=== PATIENT | female | born 1950 | race Caucasian/White ===

== ENCOUNTER 2016-12-03 09:10 | Outpatient (CLI) | payer MEDICARE, OTHER ==
[~2016-12-03 09:10] MED LIST: BREO ELLIPTA1 POW IH; DILTIAZEM CD120 MG PO; FLUTICASONE 50M16 GM; IMODIUM 2MG. CAP2 MG PO; LORAZEPAM0.5 MG/TAB PO; LOSARTAN POTAS100 MG PO; METFORMIN500 MG PO; MONTELUKAST SOD10 MG PO; OMEGA-3 KRILL O1 SGL PO; SALMETEROL-F28 PUFF1 IN; TRAZODONE 50MG50 MG PO; VENTOLIN H0.09 MG/AC IH; VITAMIN D35000 IU PO; ZOFRAN4 MG PO; [UNRECOGNIZED DRUG - OTHER] PO
[2016-12-03] MEDS ORDERED: REFRESH OPTIVE1 EACH OP (10:22)
[2016-12-03] MEDS ORDERED: FLAX OIL1000 M1 PO (10:22)
[2016-12-03] MEDS ORDERED: CEPHALEXIN500 MG PO (10:25)
[2016-12-03 10:42] VITALS: BP 156/86
[2016-12-03 10:50] VITALS: BP 141/88
[2017-01-31] MEDS ORDERED: CETIRIZINE HCL10 MG PO (11:26)
[2017-02-27] MEDS ORDERED: CEFDINIR300 MG PO (10:22)
== END 2016-12-03 11:00 | disposition home or self-care (01) ==
LOC: COP 09:10
DX: J45.40 Moderate persistent asthma, uncomplicated (principal)
CPT/HCPCS: J2357

== ENCOUNTER 2016-12-27 12:35 | Outpatient (CLI) | payer MEDICARE, OTHER ==
[~2016-12-27 12:35] MED LIST changes: +CEPHALEXIN500 MG PO; +FLAX OIL1000 M1 PO; +REFRESH OPTIVE1 EACH OP
[2016-12-27 12:50] VITALS: BP 136/62
[2017-01-31] MEDS ORDERED: CETIRIZINE HCL10 MG PO (11:26)
[2017-02-27] MEDS ORDERED: CEFDINIR300 MG PO (10:22)
== END 2016-12-27 13:15 | disposition home or self-care (01) ==
LOC: COP 12:35
DX: J45.40 Moderate persistent asthma, uncomplicated (principal)
CPT/HCPCS: J2357

== ENCOUNTER 2017-02-13 10:30 | Outpatient (CLI) | payer MEDICARE, OTHER ==
[~2017-02-13 10:30] MED LIST changes: +CETIRIZINE HCL10 MG PO
[2017-02-13 10:55] VITALS: BP 132/70
[2017-02-27] MEDS ORDERED: CEFDINIR300 MG PO (10:22)
== END 2017-02-13 11:15 | disposition home or self-care (01) ==
LOC: COP 10:30
DX: J45.40 Moderate persistent asthma, uncomplicated (principal)
CPT/HCPCS: J2357

== ENCOUNTER 2017-08-27 11:45 | Outpatient (CLI) | payer MEDICARE, OTHER ==
[~2017-08-27 11:45] MED LIST changes: +CEFDINIR300 MG PO; +CYMBALTA30 MG PO; +ELIQUIS5 MG PO; +METFORMIN 500M500 M1 PO; +WELLBUTRIN XL150 MG PO; +WELLBUTRIN XL300 MG PO
[2017-08-27 12:25] VITALS: BP 120/70
== END 2017-08-27 12:45 | disposition home or self-care (01) ==
LOC: COP 11:45
DX: J45.40 Moderate persistent asthma, uncomplicated (principal)
CPT/HCPCS: J2357

== ENCOUNTER 2017-09-10 10:40 | Outpatient (CLI) | payer MEDICARE, OTHER ==
[~2017-09-10 10:40] MED LIST changes: -CYMBALTA30 MG PO; +CYMBALTA60 M1 PO
[2017-09-10 11:05] VITALS: BP 115/69
== END 2017-09-10 11:25 | disposition home or self-care (01) ==
LOC: COP 10:40
DX: J45.40 Moderate persistent asthma, uncomplicated (principal)
CPT/HCPCS: J2357

== ENCOUNTER 2017-09-15 13:41 | Inpatient (IN) | payer MEDICARE, OTHER ==
[~2017-09-15] VITALS: Ht 154.9 cm; Wt 65.5 kg
[2017-09-15 13:44] VITALS: BP 166/66
--- OUTSIDE RECORDS SUMMARY | 2017-09-15 13:55 | External Medical Summary Rpt | CCD ---
Author Author , LOPEZ MARROQUIN Address Unknown Phone [email or web address] Care Team Providers Care Teen Counselor Name Role Phone Manuel Marie MD, Unavailable Unavailable Maunel Marie MD Purpose Continuity of Care Document - 08-09-2013 through 2016 Problems Code Diagnosis DOS Provider Status [id number] Asthma [facility] 401.9 Essential [place] hypertensio [facility] 427.31 [facility] [place] [facility] [id number] Diabetes [place] mellitus [facility] 2 [facility] Allergies, Adverse Reactions, Alerts Type Allergy to substance Drug Allergy Adverse Reaction to Substance Substance Reaction Severity IV CONTRAST I-HIVES Severe Penicillin Unknown Unknown Sulfonamide Related Unknown Unknown Tetracycline Unknown Unknown Penicillin G Unknown Unknown Levofloxacin Unknown Unknown Medications Na ND Rx Da Fi Fi Am Da Di Ph RX Ph St me C No te ll ll ou ys ag ar # ys at rm s nt no ma ic us Or Da si cy ia de te s n re d Di 62 11 1 No lt 58 -2 ia 40 3- Lo ze 97 20 ng m 40 13 er ER 1 Ac 12 ti 0M ve G Ca ps ul e SO 00 11 2 No DI 40 -2 UM 97 2- Lo 98 20 ng CH 30 13 er LO 9 RI Ac DE ti ve 0. 9% SO JULIA TI ON TY 50 11 2 No LE 58 -2 NO 00 2- Lo L 45 20 ng EX 10 13 er -S 3 TR Ac ti 50 [address] ET LO 51 11 2 No PE 07 -2 RA 90 2- Lo WY 69 20 ng DE 02 13 er 2 0 Ac MG ti ve CA PS UL E ON 00 11 2 No DA 64 -2 NS 16 2- Lo ET 08 20 ng RO 02 13 er N 5 HC Ac L ti 4 ve MG /2 ML AL Lo 63 11 2 No ra 73 -2 ze 90 2- Lo pa 15 20 ng m 41 13 er 0. 0 5M Ac G ti Ta ve bl et PA 11 2 No TI -2 EN 2- Lo T' 20 ng S 13 er OW N Ac HO ti ME ve ME DS FA 51 11 2 No MO 07 -2 TI 90 2- Lo DI 96 20 ng NE 62 13 er 0 20 Ac ti MG ve TA BL ET FS 11 2 No -2 BL 2- Lo OO 20 ng D 13 er M[place]IS GA Ac R ti ve SO 00 09 0 No DI 40 -1 UM 97 0- Lo 98 20 ng CH 30 13 er LO 9 RI Ac DE ti ve 0. 9% SO JULIA TI ON AV 00 09 0 No AP 08 -1 RO 72 0- Lo 77 20 ng 15 23 13 er 0 1 MG Ac ti TA ve BL ET PA 09 0 No TI -1 EN 0- Lo T' 20 ng S 13 er OW N Ac HO ti ME ve ME DS Di 62 09 0 No lt 58 -1 ia 40 0- Lo ze 97 20 ng m 40 13 er ER 1 Ac 12 ti 0M ve G Ca ps ul e DI 00 09 0 No LT 40 -0 IA 94 9- Lo ZE 35 20 ng M 00 13 er HC 3 L Ac 10 ti 0 ve MG AL SO 00 09 0 No DI 40 -0 UM 97 9- Lo 10 20 ng CH 16 13 er LO 7 RI Ac DE ti ve 0. 9% SO LN Sa 63 09 0 No li 80 -0 ne 70 9- Lo 10 20 ng Fl 07 13 er us 5 h Ac 10 ti ML ve Sy ri ng e ON 00 09 0 No DA 64 -0 NS 16 9- Lo ET 08 20 ng RO 02 13 er N 5 HC Ac L ti 4 ve MG /2 ML AL Di 55 09 0 No lt 39 -0 ia 00 9- Lo ze 56 20 ng m 60 13 er 25 5 MG Ac /5 ti ML ve Vi al LO 00 09 0 No VE 07 -0 NO 50 9- Lo X 62 20 ng 80 28 13 er 1 MG Ac /0 ti .8 ve ML SY RI NG E FS 09 0 No -0 BL 9- Lo OO 20 ng D 13 er M[place]RIS GA Ac R ti ve Ae 08 09 0 No ro 37 -0 ch 30 9- Lo am 76 20 ng be 50 13 er r/ 0 Op Ac ti ti pritchard ve le r Lo 63 09 0 No ra 73 -0 ze 90 9- Lo pa 15 20 ng m 41 13 er 0. 0 5M Ac G ti Ta ve bl et AV 00 09 0 No AP 08 -0 RO 72 9- Lo 77 20 ng 15 23 13 er 0 1 MG Ac ti TA ve BL ET ME 51 09 0 No TO 07 -0 OH 90 9- Lo OL 80 20 ng OL 12 13 er 0 TA Ac RT ti RA ve TE 50 MG TA B CO 00 09 0 No UM 05 -0 AD 60 9- Lo IN 17 20 ng 5 27 13 er 0 MG Ac ti TA ve BL ET VE 00 09 0 No NT 17 -0 OL 30 9- Lo IN 68 20 ng 22 13 er HF 4 A Ac 90 ti ve MC G IN PRITCHARD LE R Lo 63 09 1 No ra 73 -0 ze 90 9- Lo pa 15 20 ng m 41 13 er 0. 0 5M Ac G ti Ta ve bl et AD 00 09 1 No VA 17 -0 IR 30 9- Lo 69 20 ng 50 70 13 er 0- 4 50 Ac ti DI ve SK US Vital Signs 10-24-2013 12:20 Name Value Interpretat Reference Comment ion Range Body 98.2 [degF] Temperature BP 59 mm[Hg] Diastolic BP Systolic 118 mm[Hg] Heart 63 /min Rate/Pulse Respiratory 20 /min Rate 10-24-2013 12:00 Name Value Interpretat Reference Comment ion Range O2% 98 % 10-22-2013 20:00 Name Value Interpretat Reference Comment ion Range O2% 93 % 10-22-2013 18:03 Name Value Interpretat Reference Comment ion Range Body 98.8 [degF] Temperature BP 69 mm[Hg] Diastolic BP Systolic 152 mm[Hg] Heart 116 /min Rate/Pulse Height 154.94 cm Respiratory 24 /min Rate Weight 158 [lb_av] Measured Weight 71.895 kg Measured 08-10-2013 13:15 Name Value Interpretat Reference Comment ion Range Body 98.2 [degF] Temperature BP 63 mm[Hg] Diastolic BP Systolic 118 mm[Hg] Heart 65 /min Rate/Pulse Respiratory 18 /min Rate 08-10-2013 08:00 Name Value Interpretat Reference Comment ion Range O2% 92 % 08-09-2013 07:13 Name Value Interpretat Reference Comment ion Range Height 154.94 cm Weight 72.179 kg Measured 08-09-2013 03:19 Name Value Interpretat Reference Comment ion Range Body 98.1 [degF] Temperature BP 120 mm[Hg] Diastolic BP Systolic 178 mm[Hg] Heart 95 /min Rate/Pulse O2% 99 % Respiratory 20 /min Rate Weight 0 [oz_av] Measured Results Labs Lab Lab Date Result Refere Interp Status Commen Order Detail nces retati t Range on BASIC METABOLIC PANEL (10-24-2013 06:20) Glucose 128 74-106 complet 013 mg/dL ed Bld-mCn 06:20 c BUN 6 mg/dL 7-18 complet Bld-mCn 013 ed c 06:20 Creat 1.0 0.6-1.0 complet SerPl-m 013 mg/dL ed Cnc 06:20 Creat 64 50-200 complet Cl 013 ML/MIN ed predict 06:20 ed SerPl C-G-vRa te GFR/BSA 56 59- complet .pred 013 ML/MIN ed SerPl 06:20 Schwart z-vRate Sodium 145 136-145 complet SerPl-s 013 mmoL/L ed Cnc 06:20 Potassi 3.8 3.5-5.1 complet um 013 mmoL/L ed SerPl-s 06:20 Cnc Chlorid 109 98-107 complet e 013 mmoL/L ed SerPl-s 06:20 Cnc CO2 28 21.0-32 complet SerPl-s 013 mmoL/L .0 ed Cnc 06:20 Calcium 7.7 8.5-10. complet 013 mg/dL 1 ed SerPl-m 06:20 Cnc CBC with AUTO DIFF (10-24-2013 06:20) WBC # 10-24-2 5.8 4.8-10. complet Bld 013 K/MM3 8 ed Auto 06:20 RBC # 10-24-2 3.82 4.2-5.4 complet Bld 013 M/mm3 ed Auto 06:20 Hgb 11.9 12.2-16 complet Bld-mCn 013 g/dL .2 ed c 06:20 Hct Fr 34.8 % 37.0-47 complet Bld 013 .0 ed 06:20 MCV RBC 11-24-2 91.3 fl 82.2-97 complet 013 .8 ed 06:20 MCH RBC 11-24-2 31.3 pg 27-31.2 complet Qn 013 ed Auto 06:20 MEAN 11-24-2 34.3 31.8-35 complet CORPUSC 013 g/dl .4 ed ULAR 06:20 HGB CONC RDW RBC 11-24-2 14.5 % 11.5-17 complet Auto 013 .5 ed 06:20 Platele 11-24-2 209 142-424 complet t Bld 013 K/mm3 ed Ql 06:20 Manual MEAN 11-24-2 7.4 fl 7.4-10. complet PLATELE 013 4 ed T 06:20 VOLUME Granulo 11-24-2 54.9 % 37.0-80 complet cytes 013 .0 ed Fr Bld 06:20 Auto LYMPH % 11-24-2 31.9 % 10-50.0 complet 013 ed 06:20 Monocyt 11-24-2 8.4 % 1.7-9.3 complet es Fr 013 ed Bld 06:20 Auto Eosinop 11-24-2 4.0 % 0.1-12. complet hil Fr 013 0 ed Bld 06:20 Auto Basophi 11-24-2 0.8 % 0.1-2.0 complet ls Fr 013 ed Bld 06:20 Auto Granulo 11-24-2 3.2 1.8-7.8 complet cytes # 013 K/mm3 ed Bld 06:20 Auto Lymphoc 11-24-2 1.9 0.7-4.5 complet ytes Fr 013 K/mm3 ed Bld 06:20 Auto Monocyt 11-24-2 0.5 0.1-1.0 complet es # 013 K/mm3 ed Bld 06:20 Auto Eosinop 11-24-2 0.2 0.0-0.4 complet hil # 013 K/mm3 ed Bld 06:20 Auto Basophi 11-24-2 0.1 0-0.2 complet ls # 013 K/MM3 ed Bld 06:20 Auto COMPREHENSIVE METABOLIC PANEL (10-23-2013 06:20) Glucose 23-2 124 74-106 complet 013 mg/dL ed Bld-mCn 06:20 c BUN 11-23-2 11 7-18 complet Bld-mCn 013 mg/dL ed c 06:20 Creat 10-23-2 1.0 0.6-1.0 complet SerPl-m 013 mg/dL ed Cnc 06:20 Creat 10-23-2 64 50-200 complet Cl 013 ML/MIN ed predict 06:20 ed SerPl C-G-vRa te GFR/BSA 10-23-2 56 59- complet .pred 013 ML/MIN ed SerPl 06:20 Schwart z-vRate Sodium 10-23- 140 136-145 complet SerPl-s 013 mmoL/L ed Cnc 06:20 Potassi 10-23-2 3.6 3.5-5.1 complet um 013 mmoL/L ed SerPl-s 06:20 Cnc Chlorid 10-23-2 106 98-107 complet e 013 mmoL/L ed SerPl-s 06:20 Cnc CO2 10-23-2 28 21.0-32 complet SerPl-s 013 mmoL/L .0 ed Cnc 06:20 Calcium 10-23-2 8.0 8.5-10. complet 013 mg/dL 1 ed SerPl-m 06:20 Cnc Prot 10-23-2 6.2 6.4-8.2 complet SerPl-m 013 gm/dL ed Cnc 06:20 Albumin 10-23-2 2.9 3.4-5.0 complet 013 gm/dL ed SerPl-m 06:20 Cnc Globuli 10-23-2 3.3 1.3-3.2 complet n 013 gm/dL ed Ser-mCn 06:20 c Albumin 10-23-2 0.9 UNK 1.1-1.8 complet /Glob 013 ed SerPl-m 06:20 Rto Bilirub 10-23-2 0.8 0.2-1.0 complet 013 mg/dL ed SerPl-m 06:20 Cnc AST 10-23-2 15 U/L 15-37 complet SerPl-c 013 ed Cnc 06:20 ALT 23-2 31 U/L 30-65 complet SerPl-c 013 ed Cnc 06:20 ALP 23-2 91 U/L 50-136 complet SerPl-c 013 ed Cnc 06:20 CBC with AUTO DIFF (10-23-2013 06:20) WBC # 11-23-2 6.4 4.8-10. complet Bld 013 K/MM3 8 ed Auto 06:20 RBC # 11-23-2 3.90 4.2-5.4 complet Bld 013 M/mm3 ed Auto 06:20 Hgb 11-23-2 12.2 12.2-16 complet Bld-mCn 013 g/dL .2 ed c 06:20 Hct Fr 11-23-2 34.9 % 37.0-47 complet Bld 013 .0 ed 06:20 MCV RBC 11-23-2 89.6 fl 82.2-97 complet 013 .8 ed 06:20 MCH RBC 11-23-2 31.2 pg 27-31.2 complet Qn 013 ed Auto 06:20 MEAN 11-23-2 34.8 31.8-35 complet CORPUSC 013 g/dl .4 ed ULAR 06:20 HGB CONC RDW RBC 11-23-2 14.4 % 11.5-17 complet Auto 013 .5 ed 06:20 Platele 11-23-2 225 142-424 complet t Bld 013 K/mm3 ed Ql 06:20 Manual MEAN 11-23-2 7.4 fl 7.4-10. complet PLATELE 013 4 ed T 06:20 VOLUME Granulo 11-23-2 66.3 % 37.0-80 complet cytes 013 .0 ed Fr Bld 06:20 Auto LYMPH % 11-23-2 23.9 % 10-50.0 complet 013 ed 06:20 Monocyt 11-23-2 8.1 % 1.7-9.3 complet es Fr 013 ed Bld 06:20 Auto Eosinop 11-23-2 1.1 % 0.1-12. complet hil Fr 013 0 ed Bld 06:20 Auto Basophi 11-23-2 0.6 % 0.1-2.0 complet ls Fr 013 ed Bld 06:20 Auto Granulo 11-23-2 4.3 1.8-7.8 complet cytes # 013 K/mm3 ed Bld 06:20 Auto Lymphoc 11-23-2 1.5 0.7-4.5 complet ytes Fr 013 K/mm3 ed Bld 06:20 Auto Monocyt 11-23-2 0.5 0.1-1.0 complet es # 013 K/mm3 ed Bld 06:20 Auto Eosinop 11-23-2 0.1 0.0-0.4 complet hil # 013 K/mm3 ed Bld 06:20 Auto Basophi 10-23-2 0.0 0-0.2 complet ls # 013 K/MM3 ed Bld 06:20 Auto BASIC METABOLIC PANEL (10-22-2013 15:57) Glucose 10-22-2 153 74-106 complet 013 mg/dL ed Bld-mCn 15:57 c BUN 10-22-2 13 7-18 complet Bld-mCn 013 mg/dL ed c 15:57 Creat 10-22-2 1.0 0.6-1.0 complet SerPl-m 013 mg/dL ed Cnc 15:57 GFR/BSA 56 59- complet .pred 013 ML/MIN ed SerPl 15:57 Schwart z-vRate Sodium 138 136-145 complet SerPl-s 013 mmoL/L ed Cnc 15:57 Potassi 4.1 3.5-5.1 complet um 013 mmoL/L ed SerPl-s 15:57 Cnc Chlorid 100 98-107 complet e 013 mmoL/L ed SerPl-s 15:57 Cnc CO2 26 21.0-32 complet SerPl-s 013 mmoL/L .0 ed Cnc 15:57 Calcium 10-22-2 9.2 8.5-10. complet 013 mg/dL 1 ed SerPl-m 15:57 Cnc CBC with AUTO DIFF (10-22-2013 15:57) WBC # 10-22-2 16.8 4.8-10. complet Bld 013 K/MM3 8 ed Auto 15:57 RBC # 10-22-2 4.59 4.2-5.4 complet Bld 013 M/mm3 ed Auto 15:57 Hgb 10-22-2 14.7 12.2-16 complet Bld-mCn 013 g/dL .2 ed c 15:57 Hct Fr 10-22- 40.5 % 37.0-47 complet Bld 013 .0 ed 15:57 MCV RBC 10-22-2 88.2 fl 82.2-97 complet 013 .8 ed 15:57 MCH RBC 10-22-2 31.9 pg 27-31.2 complet Qn 013 ed Auto 15:57 MEAN 11-22-2 36.1 31.8-35 complet CORPUSC 013 g/dl .4 ed ULAR 15:57 HGB CONC RDW RBC 11-22-2 14.5 % 11.5-17 complet Auto 013 .5 ed 15:57 Platele 11-22-2 286 142-424 complet t Bld 013 K/mm3 ed Ql 15:57 Manual MEAN 11-22-2 7.1 fl 7.4-10. complet PLATELE 013 4 ed T 15:57 VOLUME Granulo 11-22-2 89.6 % 37.0-80 complet cytes 013 .0 ed Fr Bld 15:57 Auto LYMPH % 11-22-2 5.0 % 10-50.0 complet 013 ed 15:57 Monocyt 11-22-2 3.2 % 1.7-9.3 complet es Fr 013 ed Bld 15:57 Auto Eosinop 11-22-2 1.7 % 0.1-12. complet hil Fr 013 0 ed Bld 15:57 Auto Basophi 11-22-2 0.4 % 0.1-2.0 complet ls Fr 013 ed Bld 15:57 Auto Granulo 11-22-2 15.0 1.8-7.8 complet cytes # 013 K/mm3 ed Bld 15:57 Auto Lymphoc 11-22-2 0.9 0.7-4.5 complet ytes Fr 013 K/mm3 ed Bld 15:57 Auto Monocyt 11-22-2 0.5 0.1-1.0 complet es # 013 K/mm3 ed Bld 15:57 Auto Eosinop 11-22-2 0.3 0.0-0.4 complet hil # 013 K/mm3 ed Bld 15:57 Auto Basophi 11-22-2 0.1 0-0.2 complet ls # 013 K/MM3 ed Bld 15:57 Auto Glucose dC Glucomtr-[facility] (08-10-2013 11:39) Glucose 131 70-110 complet BldC 013 mg/dl ed Glucomt 11:39 r-[facility] BASIC METABOLIC PANEL (08-10-2013 06:35) Glucose 129 74-106 complet 013 mg/[facility] c BUN 09-10-2 13 7-18 complet Bld-mCn 013 mg/dL ed c 06:35 Creat 1.0 0.6-1.0 complet SerPl-m 013 mg/dL ed Cnc 06:35 ESTIMAT 65 50-200 complet ED 013 ML/MIN ed CREATIN 06:35 INE CLEARAN CE GFR 56 59- complet (ESTIMA 013 ML/MIN ed JARED) 06:35 Sodium 142 136-145 complet SerPl-s 013 mmoL/L ed Cnc 06:35 Potassi 4.1 3.5-5.1 complet um 013 mmoL/L ed SerPl-s 06:35 Cnc Chlorid 104 98-107 complet e 013 mmoL/L ed SerPl-s 06:35 Cnc CO2 31 21.0-32 complet SerPl-s 013 mmoL/L .0 ed Cnc 06:35 Calcium 8.5 8.5-10. complet 013 mg/dL 1 ed SerPl-m 06:35 Cnc PROTIME/INR (08-10-2013 06:35) PROTHRO 10.6 9.9-11. complet MBIN 013 SECONDS 6 ed TIME 06:35 INR Bld 0.99 0.9-1.1 complet 013 UNK ed 06:35 CBC with AUTO DIFF (08-10-2013 06:35) WBC # 08-10- 7.9 4.8-10. complet Bld 013 K/MM3 8 ed Auto 06:35 RBC # 08-10- 4.14 4.2-5.4 complet Bld 013 M/mm3 ed Auto 06:35 Hgb 13.5 12.2-16 complet Bld-mCn 013 g/dL .2 ed c 06:35 Hct Fr 39.4 % 37.0-47 complet Bld 013 .0 ed 06:35 MCV RBC 95.2 fl 82.2-97 complet 013 .8 ed 06:35 MCH RBC 32.6 pg 27-31.2 complet Qn 013 ed Auto 06:35 MEAN 34.2 31.8-35 complet CORPUSC 013 g/dl .4 ed ULAR 06:35 HGB CONC RDW RBC -10-2 13.3 % 11.5-17 complet Auto 013 .5 ed 06:35 Platele -10-2 256 142-424 complet t Bld 013 K/mm3 ed Ql 06:35 Manual MEAN 08-10- 7.4 fl 7.4-10. complet PLATELE 013 4 ed T 06:35 VOLUME Granulo -10-2 63.5 % 37.0-80 complet cytes 013 .0 ed Fr Bld 06:35 Auto LYMPH % -10-2 28.9 % 10-50.0 complet 013 ed 06:35 Monocyt 09-10-2 4.9 % 1.7-9.3 complet es Fr 013 ed Bld 06:35 Auto Eosinop -10-2 2.1 % 0.1-12. complet hil Fr 013 0 ed Bld 06:35 Auto Basophi -10-2 0.7 % 0.1-2.0 complet ls Fr 013 ed Bld 06:35 Auto Granulo -10-2 5.0 1.8-7.8 complet cytes # 013 K/mm3 ed Bld 06:35 Auto Lymphoc -10-2 2.3 0.7-4.5 complet ytes Fr 013 K/mm3 ed Bld 06:35 Auto Monocyt -10-2 0.4 0.1-1.0 complet es # 013 K/mm3 ed Bld 06:35 Auto Eosinop -10-2 0.2 0.0-0.4 complet hil # 013 K/mm3 ed Bld 06:35 Auto Basophi -10-2 0.1 0-0.2 complet ls # 013 K/MM3 ed Bld 06:35 Auto Glucose BldC Glucomtr-[facility] (08-10-2013 06:32) Glucose 129 70-110 complet BldC 013 mg/dl ed Glucomt 06:32 r-nc Glucose BldC Glucomtr-[facility] (08-09-2013 20:47) Glucose 149 70-110 complet BldC 013 mg/dl ed Glucomt 20:47 r-nc Glucose BldC Glucomtr-[facility] (08-09-2013 16:54) Glucose 99 70-110 complet BldC 013 mg/dl ed Glucomt 16:54 r-[facility] Glucose BldC Glucomtr-nc (08-09-2013 10:55) Glucose 115 70-110 complet BldC 013 mg/dl ed Glucomt 10:55 r-[facility] Glucose dC Glucomtr-[facility] (08-09-2013 06:56) Glucose 143 70-110 complet BldC 013 mg/dl ed Glucomt 06:56 r-[facility] BASIC METABOLIC PANEL (08-09-2013 03:30) Glucose 138 74-106 complet 013 mg/dL ed Bld-mCn 03:30 c BUN 19 7-18 complet Bld-mCn 013 mg/dL ed c 03:30 Creat 1.0 0.6-1.0 complet SerPl-m 013 mg/dL ed Cnc 03:30 ESTIMAT 61 50-200 complet ED 013 ML/MIN ed CREATIN 03:30 INE CLEARAN CE GFR 56 59- complet (ESTIMA 013 ML/MIN ed JARED) 03:30 Sodium 139 136-145 complet SerPl-s 013 mmoL/L ed Cnc 03:30 Potassi 4.3 3.5-5.1 complet um 013 mmoL/L ed SerPl-s 03:30 Cnc Chlorid 102 98-107 complet e 013 mmoL/L ed SerPl-s 03:30 Cnc CO2 30 21.0-32 complet SerPl-s 013 mmoL/L .0 ed Cnc 03:30 Calcium 8.8 8.5-10. complet 013 mg/dL 1 ed SerPl-m 03:30 Cnc T4 SerPl-mCnc (08-09-2013 03:30) T4 9.5 4.7-13. complet SerPl-m 013 ug/dl 3 ed Cnc 03:30 THYROID STIM HORMONE (08-09-2013 03:30) THYROID 6.57 0.358-3 complet STIM 013 uIU/ml .740 ed HORMONE 03:30 PROTIME/INR (08-09-2013 03:30) PROTHRO 08-09-2 9.6 9.9-11. complet MBIN 013 SECONDS 6 ed TIME 03:30 INR Bld 0.90 0.9-1.1 complet 013 UNK ed 03:30 CBC with AUTO DIFF (08-09-2013 03:30) WBC # 09-2 11.0 4.8-10. complet Bld 013 K/MM3 8 ed Auto 03:30 RBC # 08-09-2 4.64 4.2-5.4 complet Bld 013 M/mm3 ed Auto 03:30 Hgb 15.1 12.2-16 complet Bld-mCn 013 g/dL .2 ed c 03:30 Hct Fr 43.8 % 37.0-47 complet Bld 013 .0 ed 03:30 MCV RBC 94.5 fl 82.2-97 complet 013 .8 ed 03:30 MCH RBC 32.5 pg 27-31.2 complet Qn 013 ed Auto 03:30 MEAN 34.4 31.8-35 complet CORPUSC 013 g/dl .4 ed ULAR 03:30 HGB CONC RDW RBC 14.1 % 11.5-17 complet Auto 013 .5 ed 03:30 Platele 307 142-424 complet t Bld 013 K/mm3 ed Ql 03:30 Manual MEAN 7.2 fl 7.4-10. complet PLATELE 013 4 ed T 03:30 VOLUME Granulo 66.2 % 37.0-80 complet cytes 013 .0 ed Fr Bld 03:30 Auto LYMPH % 25.1 % 10-50.0 complet 013 ed 03:30 Monocyt 08-09- 5.8 % 1.7-9.3 complet es Fr 013 ed Bld 03:30 Auto Eosinop 2.0 % 0.1-12. complet hil Fr 013 0 ed Bld 03:30 Auto Basophi 0.7 % 0.1-2.0 complet ls Fr 013 ed Bld 03:30 Auto Granulo 09-09-2 7.3 1.8-7.8 complet cytes # 013 K/mm3 ed Bld 03:30 Auto Lymphoc 2.8 0.7-4.5 complet ytes Fr 013 K/mm3 ed Bld 03:30 Auto Monocyt 0.6 0.1-1.0 complet es # 013 K/mm3 ed Bld 03:30 Auto Eosinop 0.2 0.0-0.4 complet hil # 013 K/mm3 ed Bld 03:30 Auto Basophi 0.1 0-0.2 complet ls # 013 K/MM3 ed Bld 03:30 Auto Encounters Encounter Start End Date Code Location Performer Type Date Inpatient RINA Marie MD ([place]) 3 15:57 3 12:25 [facility] Inpatient RINA Marie MD ([place]) 3 03:38 3 13:15 [facility]
--- OUTSIDE RECORDS SUMMARY | 2017-09-15 13:55 | External Medical Summary Rpt | CCD ---
Author Author , LOPEZ MARROQUIN Address Unknown Phone [email or web address] Care Team Providers Care Umbrella Supervisor Name Role Phone Manuel Marie MD, Unavailable Unavailable Manuel Marie MD Purpose Continuity of Care Document - 08-09-2013 through 2016 Problems Code Diagnosis DOS Provider Status [id number] Asthma [facility] 401.9 Essential [place] hypertensio [facility] 427.31 [facility] [place] [facility] [id number] Diabetes [place] mellitus [facility] 2 [facility] Allergies, Adverse Reactions, Alerts Type Allergy to [...] PE 07 -2 RA 90 2- Lo MO 69 20 ng DE 02 13 er [...] 51 09 0 No TO 07 -0 NM 90 9- Lo OL 80 20 ng [...] K/MM3 ed Bld 15:57 Auto Glucose dC Glucomtr-[facility] (08-10-2013 11:39) Glucose 131 70-110 complet BldC 013 mg/dl ed Glucomt 11:39 r-[facility] BASIC METABOLIC PANEL (08-10-2013 06:35) Glucose 129 74-106 complet 013 [facility] c BUN 09-10-2 13 7-18 complet [...] K/MM3 ed Bld 06:35 Auto Glucose BldC Glucomtr-[facility] (08-10-2013 06:32) Glucose 129 70-110 complet BldC 013 mg/dl ed Glucomt 06:32 r-nc Glucose BldC Glucomtr-[facility] (08-09-2013 20:47) Glucose 149 70-110 complet BldC 013 mg/dl ed Glucomt 20:47 r-nc Glucose BldC Glucomtr-[facility] (08-09-2013 16:54) Glucose 99 70-110 complet BldC 013 mg/dl ed Glucomt 16:54 r-[facility] Glucose BldC Glucomtr-nc (08-09-2013 10:55) Glucose 115 70-110 complet BldC 013 mg/dl ed Glucomt 10:55 r-[facility] Glucose dC Glucomtr-[facility] (08-09-2013 06:56) Glucose 143 70-110 complet BldC 013 mg/dl ed Glucomt 06:56 r-[facility] BASIC METABOLIC PANEL (08-09-2013 03:30) Glucose 138 [...] Marie MD ([place]) 3 15:57 3 12:25 [facility] Inpatient RINA Marie MD ([place]) 3 03:38 3 13:15 [facility]
--- OUTSIDE RECORDS SUMMARY | 2017-09-15 13:56 | External Medical Summary Rpt ---
Author Author LOPEZ Nair, [employer] Address Unknown Phone Unavailable
--- OUTSIDE RECORDS SUMMARY | 2017-09-15 13:56 | External Medical Summary Rpt | CCD ---
Author Author , LOPEZ MARROQUIN Address Unknown Phone [email or web address] Immunization Name Date Rout CVX Reac Dose Comm Prov Is Faci e tion ent ider Refu lity Give sed n PCV1 12-0 133 0.5 Hist LEXC No LEXC 3 5-20 mL oric NEO NEO 16 al Info rmat ion - Sour ce Unsp ecif ied Infl 09-2 135 999 Hist D041 No D041 uenz 3-20 oric 01 01 a, 16 al High Info rmat Dose ion - Sour ce Unsp ecif ied PPV2 10-0 33 999 Hist OK No OK 3 2-20 oric 15 al Info rmat ion - Sour ce Unsp ecif ied Infl 10-0 135 999 Hist OK No OK uenz 2-20 oric a, 15 al High Info rmat Dose ion - Sour ce Unsp ecif ied Hep 04-0 43 999 Hist H149 No H149 B, 9-20 oric adul 02 al t Info rmat ion - Sour ce Unsp ecif ied Hep 11-1 Intr 43 999 Hist H149 No H149 B, 3-20 amus oric adul 01 cula al t r Info rmat ion - Sour ce Unsp ecif ied Hep 10-1 Intr 52 999 Hist H149 No H149 A, 2-20 amus oric adul 01 cula al t r Info rmat ion - Sour ce Unsp ecif ied Hep 10-1 Intr 43 999 Hist H149 No H149 B, 2-20 amus oric adul 01 cula al t r Info rmat ion - Sour ce Unsp ecif ied
--- OUTSIDE RECORDS SUMMARY | 2017-09-15 13:56 | External Medical Summary Rpt | CCD ---
Author Author , LOPEZ MARROQUIN Address Unknown Phone [email or web address] Immunization Name Date Rout CVX Reac Dose [...] ecif ied PPV2 10-0 33 999 Hist MI No MI 3 2-20 oric 15 al Info rmat ion - Sour ce Unsp ecif ied Infl 10-0 135 999 Hist MI No MI uenz 2-20 oric a, 15 al High [...]
--- OUTSIDE RECORDS SUMMARY | 2017-09-15 13:56 | External Medical Summary Rpt | CCD ---
Author Author [employer] Organization [employer] Address Unknown Phone Unavailable Purpose Continuity of Care Document - through 2016
[2017-09-15 14:13] LABS: HEMOGLOBIN 13.7 g/dL (12.2-16.2); LYMPH # 1.7 K/mm3 (0.7-4.5); LYMPH % 21.2 % (10-50.0)
[2017-09-15] MEDS ORDERED: KEFLEX 500MG.500 MG PO (14:54)
[2017-09-15] MEDS ORDERED: PREDNISONE 20MG20 MG PO (14:56)
[2017-09-15] MEDS ORDERED: ALBUTEROL2.5 MG/NEB INH (14:57)
--- NOTE | 2017-09-15 14:57 | Emergency Room Report ---
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 N Clinical Suspician of Infection? N Mental Status: 1 - Regular (Normal Baseline) Sepsis Risk:Low Sepsis Risk Have you (or family members/close friends) recently traveled outside the [place]? N If Yes, where/when: Have you had exposure to infectious disease within the past month? N TB? Other? Specify: Source patient, RN notes reviewed, family, RN/MD Exam Limitations no limitations Comment This is a 67-year-old lady sent from the advanced practice psychiatric nurse office for evaluation of possible pneumonia. Patient was submitted by her PCP for an ALLERGY evaluation earlier this morning, but she was unable to have the testing done due to her shortness of breath, subjective fever and productive cough of yellowish phlegm that has been gradually getting worse over the past 2 weeks. Patient has a history of asthma, currently not using any of her nebulizers previously (out of all). Patient advised that she has finished a Z-Lionel a week ago, without any significant improvement in her condition. ALLERGIES Coded Allergies: Iodinated Contrast- Oral and IV Dye (Iodinated Contrast Media - IV Dye) ( Intermediate, I-HIVES 07/19/16) Penicillins (Intermediate, I-HIVES 07/19/16) Tetracyclines (Intermediate, I-HIVES 07/19/16) Sulfa (Sulfonamide Antibiotics) (UPSET STOMACH 07/19/16) levofloxacin (From LEVAQUIN) (UPSET STOMACH 07/19/16) Home Medications Active Scripts DILTIAZEM HCL (Diltiazem 24HR ER) 120 MG PO DAILY #30 C24 Ref 5 Prov: 08/10/13 Reported Medications Montelukast Sodium 10 MG PO QHS TRAZODONE HCL (Trazodone HCl) 25 MG PO QHS FLUTICASONE PROPIONATE (Fluticasone 50MCG Nasal [place]) 2 SPRAY NA DAILY Carboxymethyl/Gly/Poly80/Pf (Refresh Optive Advanced Drops) 1 EACH OP DAILY CETIRIZINE HCL (Cetirizine 10MG) 10 MG PO QHS Metformin HCl (Metformin) 500 MG PO BID DULOXETINE HCL (Cymbalta 30MG) 30 MG PO DAILY ALBUTEROL (Ventolin Hfa) 2 PUFFS IH Q6H6 Apixaban (Eliquis) 5 MG PO BID #60 History Medical History General CAD? No Angina: No ND: No Hypertension? Yes Hyperlipidemia? Yes CHF? No DVT? No PE? No COPD? No Asthma? Yes Anemia? No GERD? No Gastric ulcers? No GI Bleed? No Hernia? No Thyroid Problems? No Hypothyroidism? No CVA? No Seizures? No Diabetes? Yes Insulin Dependent: No Insulin Pump: No Home FSBS? No Renal Insuffiency? No End Stage Renal Disease? No UTI? Yes Stones? No BPH? No GB Disease: No Nephritic Syndrome? No Asplenia? No Hepatitis? Yes Sickle Cell Disease? No Arthritis? No Migraines? No Cataracts? No Glaucoma? No MRSA? No HIV? No TB? No Anxiety? No Depression? Yes Cancer? No More? Yes Additional hx: AFIB Immunization Hx DT/Tetanus UNKNOWN Flu Refused Pneumonia REFUSES Surgical Hx Previous Surgery?Y Gallbladd Tubal Ligation BREAST BIOPSY HYSTERECTOMY Family History Family Hx Diabetes Yes CAD No Hypertension Yes Hyperlipidemia No Cancer Yes TB No Social History Smoking Hx Smoker: Never Smoker Tobacco: No Alcohol Alcohol: No Review of Systems All Other Systems Reviewed and Negative Constitutional chills, fever Respiratory shortness of breath, wheezing Physical Exam Vital Signs Vital Signs Date Time Temp Pulse Resp B/P Pulse O2 O2 Flow FiO2 Ox Delivery Rate 09/15 1643 98.6 91 18 148/57 90 2 09/15 1538 91 18 148/57 85 09/15 1503 96 18 139/59 88 09/15 1344 99.6 68 16 166/66 86 General Appearance normal appearance, WD/WN Respiratory Status Yes: trachea midline, chest symmetrical, non tender chest. No: respiratory distress. Lung Sounds bilateral: wheezing. 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 No Comment 1600-patient remains hypoxic, [id number]% on RA, at rest. With ambulation the patient's Pox goes up to 90% (on RA). 1610-case discussed with Dr. Rodriguez, advised of patient's presentation and findings, also her inability to keep the Pox >92%. Dr. Monson agreeable with admission, as well as management so far. He requested respiratory panel and recommended adding Zithromax to current antibiotic coverage. Results/Orders Laboratory Tests 09/15/17 1600: Chlamy pneum (TEM-PCR) Pending, Adenovirus (PCR) Pending, B. pertussis DNA (PCR) Pending, Coronavirus OC43 (PCR) Pending, Coronavirus HKU1 (PCR) Pending, Coronavirus 229E (PCR) Pending, Coronavirus NL63 (PCR) Pending, Human Metapneumovir PCR Pending, Influenza A (H1) PCR Pending, Influ A (H1N1/09) PCR Pending, Influenza A (H3) PCR Pending, Influenza Type A (PCR) Pending, Influenza Type B (PCR) Pending, M. pneumoniae (PCR) Pending, Parainfluenza 1 (PCR) Pending , Parainfluenza 2 (PCR) Pending, Parainfluenza 3 (PCR) Pending, Parainfluenza 4 (PCR) Pending, RSV (PCR) Pending, Entero/Rhino (PCR) Pending 09/15/17 1350: Lactic Acid 1.2 09/15/17 1350: Sodium 135 L, Potassium 4.0, Chloride 98, Carbon Dioxide 32, BUN 11, Creatinine 0.9, Estimated Creat Clear 62, Estimated GFR (MDRD) 62, Glucose 114 H, Calcium 9.4, Total Bilirubin 0.7, AST 14 L, ALT 14, Alkaline Phosphatase 89, Total Protein 8.0, Albumin 3.7, Globulin 4.3 H, Albumin/Globulin Ratio 0.9 L, WBC 7.9, RBC 4.45, Hgb 13.7, Hct 40.2, MCV 90.5, RDW 13.1, Plt Count 291, MPV 7.1 L , Gran % 67.5, Gran # 5.3, Lymphocytes % 21.2, Monocytes % 7.1, Eosinophils % 3.5, Basophils % 0.8, Lymphocytes # 1.7, Monocytes # 0.6, Eosinophils # 0.3, Basophils # 0.1, PUBS MCHC 33.9, MCH 30.7 Current Medication Orders Sig/Vito Start time Last Medication Dose Route Stop Time Status Admin Ceftriaxone Sodium 1 GM DAILY 09/16 900 UNVr Sodium Chloride 50 ML IV Diltiazem HCl 120 MG DAILY 09/16 900 UNV PO Duloxetine HCl 30 MG DAILY 09/16 900 UNV PO Fluticasone 2 SPR DAILY 09/16 900 UNV Propionate NA Metformin HCl 500 MG BID 09/15 2100 UNV PO Methylprednisolone 60 MG Q12 09/15 2100 UNV Sodium Succinate IV Montelukast Sodium 10 MG QHS 09/15 2100 UNV PO Trazodone HCl 25 MG QHS 09/15 2100 UNV PO Diagnostic Test (Pha) 1 EACH W/MEALS&HS 09/15 1700 UNV 09/15 FS 11/14 1659 1713 Insulin Human [rDNA See Dose W/MEALS&HS 09/15 1700 UNV 09/15 origin] Insts (1) SC 1715 Azithromycin 0 .STK-MED ONE 09/15 1655 DC IV Sodium Chloride 250 ML .STK-MED ONE 09/15 1655 DC IV Acetaminophen 1,000 MG Q6HP PRN 09/15 1645 UNV PO Albuterol 2.5 MG Q4HP PRN 09/15 1645 UNV INH Sodium Chloride 1,000 ML .[id number] 09/15 1645 UNV 09/15 IV 1713 Azithromycin 500 MG DAILY 09/15 1635 UNV 09/15 Sodium Chloride 250 ML IV 1707 Influenza Virus 0.5 ML PRN PRN 09/15 1630 UNV Vaccine Quadrival IM Albuterol 0 .STK-MED ONE 09/15 1549 DC INH Albuterol 2.5 MG ONCE ONE 09/15 1545 DC 09/15 INH 09/15 1546 1555 Ceftriaxone Sodium 1 GM ONCE ONE 09/15 1500 DCr 09/15 Sodium Chloride 50 ML IV 09/15 1529 1501 Ceftriaxone Sodium 0 .STK-MED ONE 09/15 1456 DCr IV Methylprednisolone 0 .STK-MED ONE 09/15 1456 DC Sodium Succinate .ROUTE Sodium Chloride 50 ML .STK-MED ONE 09/15 1456 DC IV Methylprednisolone 125 MG ONCE ONE 09/15 1445 DC 09/15 Sodium Succinate IV 09/15 1446 1500 Albuterol/Ipratropium 3 ML ONCE ONE 09/15 1400 DC 09/15 INH 09/15 1401 1355 Albuterol/Ipratropium 0 .STK-MED ONE 09/15 1356 DC INH Sodium Chloride 10 ML PRN PRN 09/15 1345 AC IV 09/16 1345 Dose Instructions: (1)Insulin Human [rDNA origin]: SEE ADMIN CRITERIA FOR LOW INTENSITY SS Orders Procedure Date/time Status DIET-1999 CALORIE ADA 09/15 D Active UPPER RESPIRATORY PANEL, PCR 09/15 1549 Active Decision to admit 09/15 1547 Active RT REQUEST ALBUTEROL NEB 09/15 1534 Active OP COURTSEY MEAL 09/15 1532 Active RT Pulse Oximetry, Provide 09/15 1400 Active RT O2 Therapy, Monitor/[place] 09/15 1400 Active RT Aerosol Treatment, Provide 09/15 1400 Active RT Aerosol Treatment, Provide 09/15 1400 Active CULTURE, SPUTUM 09/15 1352 Active RT REQUEST DUONEB 09/15 1347 Active IV SALINE LOCK 09/15 1345 Active CULTURE, BLOOD 09/15 1345 Active LACTIC ACID 09/15 1345 Complete CBC WITH AUTO DIFF 09/15 1345 Complete CHEM 12 PROFILE 09/15 1345 Complete ADMIT PATIENT 09/15 UNK Active PULSE OXIMETRY REQUEST 09/15 UNK Active OXYGEN REQUEST 09/15 UNK Active RT REQUEST ALBUTEROL NEB 09/15 UNK Active VITAL SIGNS 09/15 UNK Active 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 POM NURSE JARED HOSE ORDER 09/15 UNK Active CODE STATUS 09/15 UNK Active PATIENT ACTIVITY ORDER 09/15 UNK Active XRAY/CT/US XRAY/CT/US XRAY chest XR interpretation by reviewed by me, discussed w/radiologist Xray Results no infiltrates, normal heart size, normal lung inflation lenora Departure Departure Time of Disposition 1452 Disposition Still a Patient Clinical Impression Primary Impression: Asthma exacerbation Qualifiers: Asthma severity: mild Asthma persistence: unspecified Qualified Code: J45.901 - Unspecified asthma with (acute) exacerbation Secondary Impressions: Acute bronchitis Qualifiers: Bronchitis organism: unspecified organism Qualified Code: J20.9 - Acute bronchitis, unspecified Condition STABLE ED Critical Care Critical Care No at 0823
--- NOTE | 2017-09-15 15:27 | RADIOLOGY REPORT PS360 ---
CHEST(2 VIEWS-NOT PORTABLE) HISTORY: PRODUCTIVE COUGH, SOA ORDERING PHYSICIAN: Tyrone Sweeney MD PATIENT AGE: 67 years COMPARISON: 02/27/2017 FINDINGS: The cardiomediastinal silhouette and pulmonary vascularity are within normal limits. The lungs are clear without infiltrates, suspicious nodules, or pleural effusions. No acute bony abnormalities. There is evidence of old granulomatous disease with calcified left hilar lymph node and calcified granuloma in the left upper lobe. IMPRESSION: 1. No acute finding. 2. Old granulomatous disease.
[2017-09-15 16:32] LABS: CORONAVIRUS 229E NOT DETECTED (NOT DETECTE); CORONAVIRUS HKU 1 NOT DETECTED (NOT DETECTE); CORONAVIRUS NL63 NOT DETECTED (NOT DETECTE); CORONAVIRUS OC43 NOT DETECTED (NOT DETECTE)
--- OUTSIDE RECORDS SUMMARY | 2017-09-15 16:37 | External Medical Summary Rpt | CCD ---
Author Author , LOPEZ MARROQUIN Address Unknown Phone [email or web address] Care Team Providers Care Fiscal Accounting Clerk Name Role Phone Manuel Marie MD, Unavailable Unavailable Manuel Marie MD Purpose Continuity of Care Document - 08-09-2013 through 2016 Problems Code Diagnosis DOS Provider Status [id number] Asthma [facility] 401.9 Essential [place] hypertensio [facility] 427.31 [facility] [place] [facility] [id number] Diabetes [place] mellitus [facility] Allergies, Adverse Reactions, Alerts Type [...] PE 07 -2 RA 90 2- Lo [place] 69 20 ng DE 02 13 er [...] 51 09 0 No TO 07 -0 MO 90 9- Lo OL 80 20 ng [...] Order Detail nces retati t Range on CBC w auto diff (09-15-2017 13:50) Automat = 0.1 0-0.2 complet ed 017 K/MM3 ed blood 13:50 basophi l count (count/ vo Baso % = 0.8 % 0.1-2.0 complet 017 ed 13:50 Automat = 0.3 0.0-0.4 complet ed 017 K/mm3 ed blood 13:50 eosinop hil count Automat = 3.5 % 0.1-12. complet ed 017 0 ed blood 13:50 eosinop hils/10 0 leukocy t Blood = 5.3 1.8-7.8 complet granulo 017 K/mm3 ed cytes 13:50 automat ed count (numb Granulo = 67.5 37.0-80 complet cyte 017 % .0 ed percent 13:50 age Blood = 40.2 37.0-47 complet hematoc 017 % .0 ed rit 13:50 (volume fractio n) Blood = 13.7 12.2-16 complet hemoglo 017 g/dL .2 ed bin 13:50 measure ment (mass/v olum Absolut = 1.7 0.7-4.5 complet e 017 K/mm3 ed lymphoc 13:50 yte count Lymphoc = 21.2 10-50.0 complet yte 017 % ed count, 13:50 blood, automat ed Mean = 30.7 27-31.2 complet corpusc 017 pg ed ular 13:50 hemoglo bin (MCH) determ Automat = 33.9 31.8-35 complet ed 017 g/dl .4 ed erythro 13:50 cyte mean corpusc ular h Automat = 90.5 82.2-97 complet ed 017 fl .8 ed erythro 13:50 cyte mean corpusc ular v Absolut = 0.6 0.1-1.0 complet e 017 K/mm3 ed monocyt 13:50 e count [place] % = 7.1 % 1.7-9.3 complet 017 ed 13:50 Automat = 7.1 7.4-10. complet ed 017 fl 4 ed blood 13:50 platele t mean volume justin Blood = 291 142-424 complet platele 017 K/mm3 ed t count 13:50 Red = 4.45 4.2-5.4 complet blood 017 M/mm3 ed cell 13:50 count Automat = 13.1 11.5-17 complet ed 017 % .5 ed erythro 13:50 cyte distrib ution width Blood = 7.9 4.8-10. complet leukocy 017 K/MM3 8 ed hellen 13:50 count (number /volume ) Blood lactic acid measurement (moles/vol (09-15-2017 13:50) Blood = 1.2 0.4-2.0 complet lactic 017 mmol/L ed acid 13:50 measure ment (moles/ vol Comprehensive metabolic panel (09-15-2017 13:50) Serum = 0.9 1.1-1.8 complet or 017 ed plasma 13:50 albumin /globul in mass ra Serum = 3.7 3.4-5.0 complet or 017 gm/dL ed plasma 13:50 albumin measure ment (mas Serum = 89 46-116 complet or 017 U/L ed plasma 13:50 alkalin e phospha tase justin Serum = 0.7 0.2-1.0 complet or 017 mg/dL ed plasma 13:50 total bilirub in measure m Serum = 11 7-18 complet or 017 mg/dL ed plasma 13:50 urea nitroge n measure men Serum = 9.4 8.5-10. complet or 017 mg/dL 1 ed plasma 13:50 calcium measure ment (mas Serum 10-16-2 = 98 98-107 complet or 017 mmoL/L ed plasma 13:50 chlorid e measure ment (mo Carbon 2 = 32 21.0-32 complet dioxide 017 mmoL/L .0 ed 13:50 measure ment Serum 2 = 0.9 0.55-1. complet or 017 mg/dL 02 ed plasma 13:50 creatin ine measure ment ( Estimat 09-15-2 = 62 50-200 complet ion of 017 ML/MIN ed creatin 13:50 ine renal clearan ce Estimat 2 = 62 59- complet ed 017 ML/MIN ed glomeru 13:50 lar filtrat ion rate (GF Comment: REFERENCE RANGE: >60 ML/MIN/1.73 SQUARE METERS Comment: If this patient is -Greenlandic, then multiply the Comment: result by 1.210. Serum 2 = 4.3 1.3-3.2 complet globuli 017 gm/dL ed n 13:50 measure ment (mass/v olume) Serum = 114 74-106 complet or 017 mg/dL ed plasma 13:50 glucose measure ment (mas Serum 2 = 4.0 3.5-5.1 complet potassi 017 mmoL/L ed um 13:50 measure ment Serum 2 = 135 136-145 complet sodium 017 mmoL/L ed measure 13:50 ment Serum 09-15-2 = 14 15-37 complet or 017 U/L ed plasma 13:50 asparta te aminotr ansfera ALT = 14 12-78 complet (SGPT) 017 U/L ed ser/whitney 13:50 s Protein = 8.0 6.4-8.2 complet total 017 gm/dL ed ser/whitney 13:50 s BASIC METABOLIC PANEL (10-24-2013 06:20) Glucose 10-24- 128 74-106 complet 013 mg/dL ed Bld-mCn 06:20 c BUN 10-24- 6 mg/dL 7-18 complet Bld-mCn 013 ed c 06:20 Creat 10-24-2 1.0 0.6-1.0 complet SerPl-m 013 mg/dL ed Cnc 06:20 Creat 10-24-2 64 50-200 complet Cl 013 ML/MIN ed [...] Bld 013 M/mm3 ed Auto 06:20 Hgb 10-24-2 11.9 12.2-16 complet Bld-mCn 013 g/dL .2 ed c 06:20 Hct Fr 34.8 % 37.0-47 complet Bld 013 .0 ed 06:20 MCV RBC 10-24- 91.3 fl 82.2-97 complet 013 .8 ed 06:20 MCH RBC 10-24-2 31.3 pg 27-31.2 complet Qn 013 ed Auto 06:20 MEAN 10-24-2 34.3 31.8-35 complet CORPUSC 013 g/dl .4 ed ULAR 06:20 HGB CONC RDW RBC 10-24-2 14.5 % 11.5-17 complet Auto 013 .5 ed 06:20 Platele 10-24-2 209 142-424 complet t Bld 013 K/mm3 ed Ql 06:20 Manual MEAN 10-24-2 7.4 fl 7.4-10. complet PLATELE 013 4 ed T 06:20 VOLUME Granulo 10-24-2 54.9 % 37.0-80 complet cytes 013 .0 [...] Auto COMPREHENSIVE METABOLIC PANEL (10-23-2013 06:20) Glucose 10-23-2 124 74-106 complet 013 mg/dL ed Bld-mCn 06:20 c BUN 10-23-2 11 7-18 complet Bld-mCn 013 mg/dL ed c 06:20 Creat 23-2 1.0 0.6-1.0 complet SerPl-m 013 mg/dL ed Cnc 06:20 Creat 10-23-2 64 50-200 complet Cl 013 ML/MIN ed predict 06:20 ed SerPl C-G-vRa te GFR/BSA 10-23-2 56 59- complet .pred 013 ML/MIN ed SerPl 06:20 Schwart z-vRate Sodium 10-23-2 140 136-145 complet SerPl-s 013 mmoL/L ed Cnc 06:20 Potassi 10-23-2 3.6 3.5-5.1 complet um 013 mmoL/L ed SerPl-s 06:20 Cnc Chlorid 10-23-2 106 98-107 complet e 013 mmoL/L ed SerPl-s 06:20 Cnc CO2 11-23-2 28 21.0-32 complet SerPl-s 013 mmoL/L .0 ed Cnc 06:20 Calcium 11-23-2 8.0 8.5-10. complet 013 mg/dL 1 ed SerPl-m 06:20 Cnc Prot 11-23-2 6.2 6.4-8.2 complet SerPl-m 013 gm/dL ed Cnc 06:20 Albumin 11-23-2 2.9 3.4-5.0 complet 013 gm/dL ed SerPl-m 06:20 Cnc Globuli 11-23-2 3.3 1.3-3.2 complet n 013 gm/dL ed Ser-mCn 06:20 c Albumin 11-23-2 0.9 UNK 1.1-1.8 complet /Glob 013 ed SerPl-m 06:20 Rto Bilirub 11-23-2 0.8 0.2-1.0 complet 013 mg/dL ed SerPl-m 06:20 Cnc AST 11-23-2 15 U/L 15-37 complet SerPl-c 013 ed Cnc 06:20 ALT 11-23-2 31 U/L 30-65 complet SerPl-c 013 ed Cnc 06:20 ALP 11-23-2 91 U/L 50-136 complet SerPl-c 013 ed [...] 013 K/mm3 ed Bld 06:20 Auto Basophi 11-23-2 0.0 0-0.2 complet ls # 013 K/MM3 ed Bld 06:20 Auto BASIC METABOLIC PANEL (10-22-2013 15:57) Glucose 22-2 153 74-106 complet 013 mg/dL ed Bld-mCn 15:57 c BUN 10-22-2 13 7-18 complet Bld-mCn 013 mg/dL ed c 15:57 Creat 10-22-2 1.0 0.6-1.0 complet SerPl-m 013 mg/dL ed Cnc 15:57 GFR/BSA 10-22-2 56 59- complet .pred 013 ML/MIN ed SerPl 15:57 Schwart z-vRate Sodium 10-22-2 138 136-145 complet SerPl-s 013 mmoL/L ed Cnc 15:57 Potassi 1122-2 4.1 3.5-5.1 complet um 013 mmoL/L ed SerPl-s 15:57 Cnc Chlorid 10-22-2 100 98-107 complet e 013 mmoL/L ed SerPl-s 15:57 Cnc CO2 10-22-2 26 21.0-32 complet SerPl-s 013 mmoL/L .0 ed Cnc 15:57 Calcium 11-22-2 9.2 8.5-10. complet 013 mg/dL 1 ed SerPl-m 15:57 Cnc CBC with AUTO DIFF (10-22-2013 15:57) WBC # 11-22-2 16.8 4.8-10. complet Bld 013 K/MM3 8 ed Auto 15:57 RBC # 11-22-2 4.59 4.2-5.4 complet Bld 013 M/mm3 ed Auto 15:57 Hgb 11-22-2 14.7 12.2-16 complet Bld-mCn 013 g/dL .2 ed c 15:57 Hct Fr 10-22-2 40.5 % 37.0-47 complet Bld 013 .0 ed 15:57 MCV RBC 11-22-2 88.2 fl 82.2-97 complet 013 .8 ed 15:57 MCH RBC 11-22-2 31.9 pg 27-31.2 complet Qn 013 ed [...] 013 K/MM3 ed Bld 15:57 Auto Glucose BldC Glucomtr-[facility] (08-10-2013 11:39) Glucose 131 70-110 complet BldC 013 mg/dl ed Glucomt 11:39 r-[facility] BASIC METABOLIC PANEL (08-10-2013 06:35) Glucose 129 74-106 complet 013 mg/dL ed Bld-mCn 06:35 c BUN 13 7-18 complet Bld-mCn 013 mg/dL ed [...] 013 mmoL/L ed SerPl-s 06:35 Cnc CO2 09-10-2 31 21.0-32 complet SerPl-s 013 mmoL/L .0 ed Cnc 06:35 Calcium -10-2 8.5 8.5-10. complet 013 mg/dL 1 ed SerPl-m 06:35 Cnc PROTIME/INR (08-10-2013 06:35) PROTHRO -10-2 10.6 9.9-11. complet MBIN 013 SECONDS 6 ed TIME 06:35 INR Bld 08-10-2 0.99 0.9-1.1 complet 013 UNK ed 06:35 CBC with AUTO DIFF (08-10-2013 06:35) WBC # 09-10-2 7.9 4.8-10. complet Bld 013 K/MM3 8 ed Auto 06:35 RBC # -10-2 4.14 4.2-5.4 complet Bld 013 M/mm3 ed Auto 06:35 Hgb -10-2 13.5 12.2-16 complet Bld-mCn 013 g/dL .2 ed c 06:35 Hct Fr 08-10-2 39.4 % 37.0-47 complet Bld 013 .0 ed 06:35 MCV RBC -10-2 95.2 fl 82.2-97 complet 013 .8 ed 06:35 MCH RBC -10-2 32.6 pg 27-31.2 complet Qn 013 ed Auto 06:35 MEAN -10-2 34.2 31.8-35 complet CORPUSC 013 g/dl .4 ed ULAR 06:35 HGB CONC RDW RBC 10-2 13.3 % 11.5-17 complet Auto 013 .5 ed 06:35 Platele -10-2 256 142-424 complet t Bld 013 K/mm3 ed Ql 06:35 Manual MEAN -10-2 7.4 fl 7.4-10. complet PLATELE 013 4 ed T 06:35 VOLUME Granulo -10-2 63.5 % 37.0-80 complet cytes 013 .0 ed Fr Bld 06:35 Auto LYMPH % -10-2 28.9 % 10-50.0 complet 013 ed 06:35 Monocyt -10-2 4.9 % 1.7-9.3 complet es Fr 013 ed Bld 06:35 Auto Eosinop -10-2 2.1 % 0.1-12. complet hil Fr 013 0 ed Bld 06:35 Auto Basophi 09-10-2 0.7 % 0.1-2.0 complet ls Fr 013 ed Bld 06:35 Auto Granulo 08-10-2 5.0 1.8-7.8 complet cytes # 013 K/mm3 ed Bld 06:35 Auto Lymphoc 09-10-2 2.3 0.7-4.5 complet ytes Fr 013 K/mm3 ed Bld 06:35 Auto Monocyt 09-10-2 0.4 0.1-1.0 complet es # 013 K/mm3 ed Bld 06:35 Auto Eosinop -10-2 0.2 0.0-0.4 complet hil # 013 K/mm3 ed Bld 06:35 Auto Basophi 09-10-2 0.1 0-0.2 complet ls # 013 K/MM3 ed Bld 06:35 Auto Glucose BldC Glucomtr-mCnc (08-10-2013 06:32) Glucose 129 70-110 complet BldC 013 mg/dl ed Glucomt 06:32 r-mCnc Glucose BldC Glucomtr-nc (08-09-2013 20:47) Glucose 149 70-110 complet BldC 013 mg/dl ed Glucomt 20:47 r-mCnc Glucose BldC Glucomtr-nc (08-09-2013 16:54) Glucose 99 70-110 complet BldC 013 mg/dl ed Glucomt 16:54 r-mCnc Glucose BldC Glucomtr-mCnc (08-09-2013 10:55) Glucose 115 70-110 complet BldC 013 mg/dl ed Glucomt 10:55 r-mCnc Glucose BldC Glucomtr-mCnc (08-09-2013 06:56) Glucose 143 70-110 complet BldC 013 mg/dl ed Glucomt 06:56 r-mCnc BASIC METABOLIC PANEL (08-09-2013 03:30) Glucose 138 [...] ed HORMONE 03:30 PROTIME/INR (08-09-2013 03:30) PROTHRO 9.6 9.9-11. complet MBIN 013 SECONDS 6 ed TIME 03:30 INR Bld 0.90 0.9-1.1 complet 013 UNK ed 03:30 CBC with AUTO DIFF (08-09-2013 03:30) WBC # 08-09- 11.0 4.8-10. complet Bld 013 K/MM3 8 ed Auto 03:30 RBC # 4.64 4.2-5.4 complet Bld 013 M/mm3 ed Auto 03:30 Hgb 15.1 12.2-16 complet Bld-mCn 013 g/dL .2 ed c 03:30 Hct Fr 43.8 % 37.0-47 complet Bld 013 .0 ed 03:30 MCV RBC 09-2 94.5 fl 82.2-97 complet 013 .8 ed 03:30 MCH RBC 09-2 32.5 pg 27-31.2 complet Qn 013 ed Auto 03:30 MEAN 09-2 34.4 31.8-35 complet CORPUSC 013 g/dl .4 ed ULAR 03:30 HGB CONC RDW RBC 08-09-2 14.1 % 11.5-17 complet Auto 013 .5 ed 03:30 Platele -09-2 307 142-424 complet t Bld 013 K/mm3 ed Ql 03:30 Manual MEAN 08-09-2 7.2 fl 7.4-10. complet PLATELE 013 4 ed T 03:30 VOLUME Granulo -09-2 66.2 % 37.0-80 complet cytes 013 .0 ed Fr Bld 03:30 Auto LYMPH % -09-2 25.1 % 10-50.0 complet 013 ed 03:30 Monocyt 09-2 5.8 % 1.7-9.3 complet es Fr 013 ed Bld 03:30 Auto Eosinop -09-2 2.0 % 0.1-12. complet hil Fr 013 0 ed Bld 03:30 Auto Basophi -09-2 0.7 % 0.1-2.0 complet ls Fr 013 ed Bld 03:30 Auto Granulo -09-2 7.3 1.8-7.8 complet cytes # 013 K/mm3 ed Bld 03:30 Auto Lymphoc -09-2 2.8 0.7-4.5 complet ytes Fr 013 K/mm3 ed Bld 03:30 Auto Monocyt 09-09-2 0.6 0.1-1.0 complet es # 013 K/mm3 ed Bld 03:30 Auto Eosinop -09-2 0.2 0.0-0.4 complet hil # 013 K/mm3 ed Bld 03:30 Auto Basophi 09-09-2 0.1 0-0.2 complet ls # 013 K/MM3 ed Bld 03:30 Auto Encounters Encounter Start End Date Code Location Performer Type Date Inpatient [facility] Ivan Marie MD ([place] 3 15:57 3 12:25 [facility] Inpatient [facility] Ivan Marie MD [place] 3 03:38 3 13:15 [facility]
--- OUTSIDE RECORDS SUMMARY | 2017-09-15 16:37 | External Medical Summary Rpt | CCD ---
Author Author , LOPEZ MARROQUIN Address Unknown Phone [email or web address] Care Team Providers Care Fountain Manager Name Role Phone Manuel Marie MD, Unavailable Unavailable Manuel Marie MD Purpose Continuity of Care Document - 08-09-2013 through 2016 Problems Code Diagnosis DOS Provider Status [id number] Asthma [facility] 401.9 Essential [place] hypertensio [facility] 427.31 [facility] [place] [id number] [place] mellitus [facility] 2 [facility] Allergies, Adverse Reactions, Alerts Type Allergy to [...] PE 07 -2 RA 90 2- Lo ND 69 20 ng DE 02 13 er [...] 51 09 0 No TO 07 -0 UT 90 9- Lo OL 80 20 ng [...] 017 K/mm3 ed monocyt 13:50 e count [place] % = 7.1 % 1.7-9.3 complet 017 [...] SQUARE METERS Comment: If this patient is -Serbian, then multiply the Comment: result by 1.210. [...] K/MM3 ed Bld 15:57 Auto Glucose BldC Glucomtr-[facility] (08-10-2013 11:39) Glucose 131 70-110 complet BldC 013 mg/dl ed Glucomt 11:39 r-[facility] BASIC METABOLIC PANEL (08-10-2013 06:35) Glucose [...] Date Code Location Performer Type Date Inpatient [facility] Ivan Marie MD ([place]) 3 15:57 3 12:25 [facility] [place] Inpatient [facility] Ivan Marie MD ([place]) 3 03:38 3 13:15 [facility] [place]
--- OUTSIDE RECORDS SUMMARY | 2017-09-15 16:38 | External Medical Summary Rpt | CCD ---
Author Author , LOPEZ MARROQUIN Address Unknown Phone [email or web address] Immunization Name Date Rout CVX Reac Dose [...] ecif ied PPV2 10-0 33 999 Hist IN No IN 3 2-20 oric 15 al Info rmat ion - Sour ce Unsp ecif ied Infl 10-0 135 999 Hist [place] No IN uenz 2-20 oric a, 15 al High [...]
--- OUTSIDE RECORDS SUMMARY | 2017-09-15 16:38 | External Medical Summary Rpt | CCD ---
Author Author , LOPEZ MARROQUIN Address Unknown Phone [email or web address] Immunization Name Date Rout CVX Reac Dose [...] ecif ied PPV2 10-0 33 999 Hist ND No ND 3 2-20 oric 15 al Info rmat ion - Sour ce Unsp ecif ied Infl 10-0 135 999 Hist ND No ND uenz 2-20 oric a, 15 al High [...]
[2017-09-15 17:32] VITALS: BP 150/75
[2017-09-15 17:59] VITALS: BP 150/75
[2017-09-15] MEDS ORDERED: ELIQUIS5 MG PO (20:00)
[2017-09-15 20:06] VITALS: BP 129/62
[2017-09-15 20:08] VITALS: BP 129/62
[2017-09-15 21:11] LABS: RHINOVIRUS/ENTEROVIRUS DETECTED (NOT DETECTE)
[2017-09-16 04:22] VITALS: BP 156/70
--- NOTE | 2017-09-16 07:17 | PHARMACY CLINIC NOTE ---
Patient Demographics Patient Demographics Admission date: 09/15/17 Date: 09/16/17 Time: 0716 Allergies Coded Allergies: Iodinated Contrast- Oral and IV Dye (Iodinated Contrast Media - IV Dye) ( Intermediate, I-HIVES 07/19/16) Penicillins (Intermediate, I-HIVES 07/19/16) Tetracyclines (Intermediate, I-HIVES 07/19/16) Sulfa (Sulfonamide Antibiotics) (UPSET STOMACH 07/19/16) levofloxacin (From LEVAQUIN) (UPSET STOMACH 07/19/16) HEIGHT- FT: 5 IN: 1.00 K.488 VTE General Information Labs: Laboratory Tests 09/15 1350 Hematology Hgb (12.2 - 16.2 g/dL) 13.7 Hct (37.0 - 47.0 %) 40.2 Plt Count (142 - 424 K/mm3) 291 Disclaimer The following section includes nursing documentation that has been pulled in for pharmacy review. Patient's VTE score: 3 Patient's VTE Risk: LOW RISK Clinical trial participant? No VTE prophylaxis [id number] VTE prophylaxis ordered? Yes Type of prophylaxis/treatment: JARED (ELIQUIS ALSO ORDERED) at 0716
[2017-09-16 07:56] VITALS: BP 142/73
[2017-09-16 08:15] VITALS: BP 142/73
[2017-09-16 08:52] LABS: HEMOGLOBIN 12.5 g/dL (12.2-16.2); LYMPH # 0.7 K/mm3 (0.7-4.5); LYMPH % 12.9 % (10-50.0)
[2017-09-16 11:47] VITALS: BP 131/72
[2017-09-16] MEDS ORDERED: ZITHROMAX Z PA250 MG PO (15:12)
[2017-09-16] MEDS ORDERED: PREDNISONE 20MG20 MG PO (15:12)
[2017-09-16 15:21] VITALS: BP 131/72
--- NOTE | 2017-09-16 15:30 | Discharge Summary Standard ---
Demographics: Admit date: 09/15/17 Chief complaint: sob PRIMARY DIAGNOSIS: ASTHMA EXACERBATION Allergies: Coded Allergies: Iodinated Contrast- Oral and IV Dye (Iodinated Contrast Media - IV Dye) ( Intermediate, I-HIVES 07/19/16) Penicillins (Intermediate, I-HIVES 07/19/16) Tetracyclines (Intermediate, I-HIVES 07/19/16) Sulfa (Sulfonamide Antibiotics) (UPSET STOMACH 07/19/16) levofloxacin (From LEVAQUIN) (UPSET STOMACH 07/19/16) History of present illness: History of present illness: 67-year-old lady sent from [facility] for evaluation of possible pneumonia, sob. Patient was referred to lead javascript developer for asthma/allergy work up but she was unable to have the testing done due to her shortness of breath, subjective fever and productive cough of yellowish phlegm that has been gradually getting worse over the past 2 weeks. Patient has a history of asthma, currently only using albuterol and breo. Pt states she finished up antibotics 2 weeks ago. Past medical history: Family HX Diabetes Yes CAD No Hypertension Yes Hyperlipidemia No Cancer Yes TB No Immunization HX DT/Tetanus UNKNOWN Flu 2017-18FSN Pneumonia Received In Past TB Test in last year No General CAD? No Angina: No MA: No Hypertension? Yes Hyperlipidemia? Yes CHF? No DVT? No PE? No COPD? No Asthma? Yes Anemia? No GERD? No Gastric ulcers? No GI Bleed? No Hernia? No Thyroid Problems? No Hypothyroidism? No CVA? No Seizures? No Diabetes? Yes Insulin Dependent: No Insulin Pump: No Home FSBS? No Renal Insuffiency? No UTI? Yes Stones? No BPH? No GB Disease: No Nephritic Syndrome? No Asplenia? No Hepatitis? Yes Sickle Cell Disease? No Arthritis? No Migraines? No Cataracts? No Glaucoma? No MRSA? No HIV? No TB? No Anxiety? No Depression? Yes Cancer? No More? Yes Additional hx: AFIB Past Surgical HX Previous Surgery?Y [place] Tubal Ligation BREAST BIOPSY HYSTERECTOMY Current home meds: Active Scripts DILTIAZEM HCL (Diltiazem 24HR ER) 120 MG PO DAILY #30 C24 Ref 5 Prov: 08/10/13 Reported Medications TRAZODONE HCL (Trazodone HCl) 100 MG PO QHS DULOXETINE HCL (Cymbalta) 60 MG PO DAILY Montelukast Sodium 10 MG PO QHS FLUTICASONE PROPIONATE (Fluticasone 50MCG Nasal [place]) 2 SPRAY NA DAILY Carboxymethyl/Gly/Poly80/Pf (Refresh Optive Advanced Drops) 1 EACH OP DAILY CETIRIZINE HCL (Cetirizine 10MG) 10 MG PO QHS Metformin HCl (Metformin) 500 MG PO BID ALBUTEROL (Ventolin Hfa) 2 PUFFS IH Q6H6 Apixaban (Eliquis) 5 MG PO BID #60 Social Hx: Smoking HX Tobacco No Are you/the child exposed to second-hand smoke: No Alcohol Alcohol: No Hx of Drug Use Drug Use? No Review of systems: Constitutional No: no symptoms reported. Respiratory see HPI, shortness of breath. Cardiovascular No no symptoms reported Gastrointestinal/Abdominal No no symptoms reported Genitourinary No: no symptoms reported. Musculoskeletal No: no symptoms reported. Skin No: no symptoms reported. Neurological No: see HPI. Exam: Lab data for last 24 hours: Laboratory Tests 09/16/17 0840: Sodium 138, Potassium 3.8, Chloride 101, Carbon Dioxide 28, BUN 13, Creatinine 0.9, Estimated Creat Clear 62, Estimated GFR (MDRD) 62, Glucose 240 H, Calcium 9.3, Total Bilirubin 0.4, AST 10 L, ALT 13, Alkaline Phosphatase 78, Total Protein 7.6, Albumin 3.4, Globulin 4.2 H, Albumin/Globulin Ratio 0.8 L, WBC 5.2, RBC 4.04 L, Hgb 12.5, Hct 36.9 L, MCV 91.3, RDW 13.0, Plt Count 276, MPV 7.7, Gran % 84.9 H, Gran # 4.4, Lymphocytes % 12.9, Monocytes % 1.7, Eosinophils % 0.3, Basophils % 0.2, Lymphocytes # 0.7, Monocytes # 0.1, Eosinophils # 0.0, Basophils # 0.0, PUBS MCHC 34.0, MCH 31.1 09/16/17 0711: POC Glucose 185 H 09/15/17 2144: POC Glucose 309 *H 09/15/17 1713: POC Glucose 210 H 09/15/17 1600: Chlamy pneum (TEM-PCR) NOT DETECTED, Adenovirus (PCR) NOT DETECTED, B. pertussis DNA (PCR) NOT DETECTED, Coronavirus OC43 (PCR) NOT DETECTED, Coronavirus HKU1 ( PCR) NOT DETECTED, Coronavirus 229E (PCR) NOT DETECTED, Coronavirus NL63 (PCR) NOT DETECTED, Human Metapneumovir PCR NOT DETECTED, Influenza A (H1) PCR NOT DETECTED, Influ A (H1N1/09) PCR NOT DETECTED, Influenza A (H3) PCR NOT DETECTED, Influenza Type A (PCR) NOT DETECTED, Influenza Type B (PCR) NOT DETECTED, M. pneumoniae (PCR) NOT DETECTED, Parainfluenza 1 (PCR) NOT DETECTED, Parainfluenza 2 (PCR) NOT DETECTED, Parainfluenza 3 (PCR) NOT DETECTED, Parainfluenza 4 (PCR) NOT DETECTED, RSV (PCR) NOT DETECTED, Entero/Rhino (PCR) DETECTED H Admission vital signs: 1ST Vital Signs Result Date Time Pulse Ox 86 09/15 1344 B/P 166/66 09/15 1344 Temp 99.6 09/15 1344 Pulse 68 09/15 1344 Resp 16 09/15 1344 O2 Flow Rate 2 09/15 1643 O2 Delivery ROOM AIR 09/15 1732 Exam General appearance: normal appearance, awake, no acute distress Eyes: normal exam ENT: normal exam Neck: normal inspection Cardiovascular: normal exam, regular rate & rhythm Respiratory: no respiratory distress, wheezing ABD: normal exam, soft Genitourinary: normal voiding & quantity Extremities: normal exam, moves all Musculoskeletal: normal exam Skin: normal exam, intact, warm Neuro: normal exam, alert, intact, oriented Hospital Course Hospital Course: chest x ray neg, pt has been up having shower and o2 remained 94%. Pt was given iv steroids and antibotics and states she feels better today. will dc home with follow up with pcp in [place]. close monitor of sugars r/t steroids. Medications Medications: Discharge meds are as noted. Follow up Follow up in office in: 4 DAYS with: IGOR BRUMFIELD Comment: follow up with pcp. rounded with zandra at [phone]
[2017-09-16 16:01] VITALS: BP 130/62
[2017-10-02] MEDS ORDERED: BREO ELLIPTA1 POW IH (14:24)
[2017-10-02] MEDS ORDERED: IPRATROPIUM BROM3 M1 IH (14:27)
== END 2017-09-16 16:15 | disposition home or self-care (01) | DRG 203 ==
LOC: ER 13:41 → 2ND 16:12 → ER 16:12 → 2ND 16:45
PROVIDERS: Emergency Medicine
DX: J45.901 Unspecified asthma with (acute) exacerbation (principal); E11.9 Type 2 diabetes mellitus without complications; I10 Essential (primary) hypertension
CPT/HCPCS: J0456

== ENCOUNTER 2017-10-16 12:42 | Outpatient (CLI) | payer MEDICARE, OTHER ==
[2017-10-16 12:35] VITALS: BP 119/75
[~2017-10-16 12:42] MED LIST changes: +ALBUTEROL2.5 MG/NEB INH; +IPRATROPIUM BROM3 M1 IH; +KEFLEX 500MG.500 MG PO; +PREDNISONE 20MG20 MG PO; +ZITHROMAX Z PA250 MG PO
== END 2017-10-16 12:55 | disposition home or self-care (01) ==
LOC: COP 12:42
DX: J45.40 Moderate persistent asthma, uncomplicated (principal)
CPT/HCPCS: J2357

== ENCOUNTER 2017-10-30 12:45 | Outpatient (CLI) | payer MEDICARE, OTHER ==
[2017-10-30 13:33] VITALS: BP 127/74
== END 2017-10-30 13:46 | disposition home or self-care (01) ==
LOC: COP 12:45
DX: J45.40 Moderate persistent asthma, uncomplicated (principal)
CPT/HCPCS: J2357

== ENCOUNTER 2017-11-13 10:22 | Outpatient (CLI) | payer MEDICARE, OTHER ==
[2017-11-13] MEDS ORDERED: TYLENOL ES500 MG PO (10:29)
[2017-11-13 10:42] VITALS: BP 137/83
== END 2017-11-13 11:10 | disposition home or self-care (01) ==
LOC: COP 10:22
DX: J45.40 Moderate persistent asthma, uncomplicated (principal)
CPT/HCPCS: J2357